=== PATIENT | female | born 1980 | race Caucasian/White ===

== ENCOUNTER 2021-03-01 14:57 | Outpatient (CLI) | payer OTHER ==
[2021-03-01] MEDS ORDERED: GADOTERATE 7.5 MMOL/15ML SYR ONE (16:58)
== END 2021-03-01 23:59 | disposition home or self-care (01) ==
LOC: RAD 14:57
PROVIDERS: ATTEND Emergency Medicine
DX: D25.0 Submucous leiomyoma of uterus (principal); D25.2 Subserosal leiomyoma of uterus
CPT/HCPCS: 72197; A9575